=== PATIENT | female | born 1985 | race Two or more races ===

== ENCOUNTER 2019-02-08 04:06 | Emergency (ER) | payer SELFPAY ==
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
[2019-02-08 05:48] LABS: Barbiturates Urine Screen None Detected (None Detect); Benzodiazepine Urine Screen None Detected (None Detect); Urine Cannabinoids Screen Presumptive Positive (None Detect)
[2019-02-08 05:53] LABS: Alcohol 104 mg/dL (<10)
[2019-02-08 06:02] LABS: HCG Pregnancy < 0.60 mIU/mL
[2019-02-08 07:54] VITALS: BP 112/72
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
== END 2019-02-08 07:53 | disposition home or self-care (01) ==
LOC: EDBD → ED 04:06
DX: T74.11XA Adult physical abuse, confirmed, initial encounter (principal); Y07.03 Male partner, perpetrator of maltreatment and neglect; F10.10 Alcohol abuse, uncomplicated; F12.10 Cannabis abuse, uncomplicated; Y90.5 Blood alcohol level of 100-119 mg/100 ml
CPT/HCPCS: 36415; 80307; 80320; 84702; 99282; G0480